=== PATIENT | female | born 1985 | race Caucasian/White ===

== ENCOUNTER 2016-10-25 08:40 | Day surgery (SDC) | payer BC, OTHER ==
[2016-10-24 11:48] VITALS: BMI 21.6
[2016-10-25] MEDS ORDERED: DESFLURANE GAS 240 ML BOTTLE IH ONE (10:50)
[2016-10-25] MEDS ORDERED: LIDOCAINE HCL 2% (20ML MULTI-DOSE VIAL) NR ONE (10:50)
[2016-10-25] MEDS ORDERED: DEXAMETHASONE SOD PHOSPHATE 4 MG/1 ML VIAL ONE (10:57)
[2016-10-25] MEDS ORDERED: ONDANSETRON 4 MG/2 ML VIAL ONE (10:57)
[2016-10-25] MEDS ORDERED: MIDAZOLAM HCL 2 MG/2 ML SINGLE DOSE VIAL ONE (10:57)
[2016-10-25] MEDS ORDERED: ROCURONIUM BROMIDE 50 MG/5 ML VIAL ONE (10:57)
[2016-10-25] MEDS ORDERED: PROPOFOL 20 ML ONE (10:57)
--- NOTE | 2016-10-25 11:02 | HP ---
History & Physical Update - History History: No Change - Physical Physical: No Change - Assessment Assessment: No Change - Plan Plan: No Change (Consented for Laparoscopic Bilateral salpingectomy and indicated procedure All questions answered)
[2016-10-25] MEDS ORDERED: NEOSTIGMINE METHYLSULFATE 0.5 MG/ML - 10 ML MDV ONE (11:35)
[2016-10-25] MEDS ORDERED: GLYCOPYRROLATE 0.2 MG/1 ML VIAL ONE (11:35)
[2016-10-25] MEDS ORDERED: KETOROLAC TROMETHAMINE 30 MG/1 ML VIAL ONE (11:35)
[2016-10-25] MEDS ORDERED: BUPIVACAINE HCL/PF 0.5% (5MG/ML) 10 ML VIAL IJ ONE (11:54)
[2016-10-25] MEDS ORDERED: oxyCODONE HCL 5 MG TABLET PO PRN (12:06)
[2016-10-25] MEDS ORDERED: ONDANSETRON 4 MG/2 ML VIAL IVPB PRN (12:06)
[2016-10-25] MEDS ORDERED: IBUPROFEN 800 MG/8 ML IJ IVPB PRN (12:06)
[2016-10-25] MEDS ORDERED: IBUPROFEN 600 MG TABLET (FP) PO PRN (12:06)
[2016-10-25] MEDS ORDERED: ACETAMINOPHEN 1000 MG/100 ML VIAL (NON FORMULARY) IVPB PRN (12:12)
[2016-10-25] MEDS ORDERED: LACTATED RINGERS SOLUTION 1,000 ML IV SCH (12:15)
[2016-10-25] MEDS ORDERED: ELECTROLYTE-148 SOLN 1,000 ML IV SCH (12:15)
--- NOTE | 2016-10-25 12:19 | OP ---
Operative Note - Note: Operative Date: 10/25/16 Pre-Operative Diagnosis: 31 yo P2 desiring permanent sterilization, multiparity Operation: Laparoscopic bilateral salpingectomy Findings: Normal abdominal anatomy: Uterus, fallopian tubes and ovaries Post-Operative Diagnosis: Same as Pre-op Surgeon: Jaylin Gallegos Director Of [employer]: Ced Randolph Anesthesiologist/STUDENT SUCCESS COUNSELOR: Laurie Chan Anesthesia: General Specimens Removed: Bilateral fallopian tubes Estimated Blood Loss (mls): 0 Drains, Volume Out (mls): 300 Fluid Volume Replaced (mls): 500 Operative Report Dictated: Yes
[2016-10-25 15:18] VITALS: BP 126/80; PULSE 92
[2016-10-25 17:31] VITALS: TEMP 97.8
--- NOTE | 2016-10-26 13:56 | PATH ---
Surgical Pathology Report Patient Name: SHERIE MERIDA [facility]. Rec. #: [id number] /Age/Gender: 1985 (Age: 31) / F Account: [id number] Location: [facility] SURGICAL Taken: 10/25/2016 Received: 10/25/2016 Reported: 10/26/2016 Physicians: Jaylin Gallegos M.D. Specimen(s) Received A: RIGHT FALLOPIAN TUBE B: LEFT FALLOPIAN TUBE Clinical History Problems related to multiparity Final Diagnosis A. FALLOPIAN TUBE, RIGHT, SALPINGECTOMY: BENIGN FALLOPIAN TUBE WITH COMPLETE CROSS SECTION. B. FALLOPIAN TUBE, LEFT SALPINGECTOMY: BENIGN FALLOPIAN TUBE WITH COMPLETE CROSS SECTION. Electronically Signed Dexter Tellez M.D. Gross Description A. Received in formalin labeled "fallopian tube right," is a 5.5 cm in length fimbriated fallopian tube. The outer surface is kimball-pink and smooth. Sectioning reveals a pinpoint lumen. Assembler Final sections are submitted in 2 cassettes as follows: 1-fimbria; 2-cross sections of fallopian tube. B. Received in formalin labeled "fallopian tube left," is a 3.2 cm in length fimbriated fallopian tube. The outer surface is siu purple and smooth. Sectioning reveals a pinpoint lumen. Assembler Final sections are submitted in 2 cassettes as follows: 1-fimbria; 2-cross sections of fallopian tube. /10/25/2016 saudi/10/25/2016
--- NOTE | 2016-10-26 15:42 | OP ---
DATE OF OPERATION: 10/25/2016 OPERATION: Laparoscopic bilateral salpingectomy PREOPERATIVE DIAGNOSIS: 31-year-old (para 2), desiring permanent sterilization. Multiparity POSTOPERATIVE DIAGNOSIS: 31-year-old (para 2), desiring permanent sterilization. Multiparity FINDINGS: Normal abdominal anatomy. Normal uterus, fallopian tubes and ovaries. SURGEON: Mihir Gallegos MD RETAIL MANAGEMENT TRAINEE: Ced Randolph MD ANESTHESTHESIOLOGIST: Laurie Chan MD ANESTHESIA: General. SPECIMEN REMOVED: Bilateral fallopian tubes. DESCRIPTION OF THE OPERATIVE PROCEDURE: After assuring informed consent and making sure patient understands that this procedure is permanent sterilization. She will not be able to conceive naturally. Consent was signed and witnessed. The patient was brought to the operating room where she was placed in the dorsal lithotomy position. After achieving general anesthesia, her perineum and abdomen were prepped and draped in sterile fashion. The uterine manipulator was placed inside the cervical canal, and the balloon was insufflated, and Reynoso was placed sterilely. Subsequently, gloves were changed and umbilicus was tilted with towel clamps, and 5-mm intraumbilical incision was made with a scalpel. The Veress needle was placed, and the placement was verified with the bubble-drop test. The abdomen was insufflated, from the initial intraabdominal pressure of 4 to 12mmHg. Abdomen was insufflated with CO2 gas to achieve abdominal distention with intraabdominal pressure of approximately 12. The Optiview with 5-mm/0-degree scope was introduced through the 5-mm intraumbilical incision under direct visualization. The abdominal organs were surveyed and found to be all within normal limits. Normal uterus, tubes and ovaries, normal right upper quadrant. No adhesions were noted. Subsequently two more 5- mm incisions were made in right and left lower quadrant, and 5-mm trocars were introduced through these incisions. The atraumatic grasper was used to elevate the right fallopian tube. The 5-mm Ligasure device was used to dissect the right fallopian tube off the mesosalpinx with excellent hemostasis. The right fallopian tube was placed in the anterior cul-de-sac. Subsequently, an identical procedure was formed on the left tube. Left fallopian tube was dissected off the left mesosalpinx. Excellent hemostasis achieved. Procedure was not traumatic to either of the ovaries. Subsequently, each fallopian tube was delivered through a 5-mm trocar and sent to pathology. Abdomen was exsufflated. Gas allowed to escape. Trocars were removed under direct visualization. The abdominal incisions were sutured with 4-0 Biosyn. Estimated blood loss 0 mL. Urine output 300 mL. Patient received 500 mL of IV fluids. Patient was placed back into the supine position. Instruments removed from the vagina. Patient was brought to the recovery room in stable condition. MIHIR GALLEGOS M.D. [id number] MTDD
== END 2016-10-25 15:17 | disposition home or self-care (01) ==
LOC: JASU-SURG 08:40
PROVIDERS: ATTEND Obstetrics & Gynecology
PROC: 0U574ZZ Destruction of Bilateral Fallopian Tubes, Percutaneous Endoscopic Approach (ICD-10-PCS; principal; 2016-10-25 10:00)
DX: Z30.2 Encounter for sterilization (principal)
CPT/HCPCS: 84703; 88302-TC; 94760